=== PATIENT | female | born 1985 | race Caucasian/White ===

== ENCOUNTER → 2017-06-29 | Outpatient (CLI) | payer BC ==
--- NOTE | 2017-06-30 16:57 | ECHOF ---
Referral Reason:Cardiomyopathy I42.2 MEASUREMENTS -------- HEIGHT: 170.2 cm WEIGHT: 104.3 kg BP: IVSd: 1.0 cm (0.6 - 1.1) LVIDd: 4.3 cm (3.9 - 5.3) LVPWd: 1.0 cm (0.6 - 1.1) IVSs: 1.7 cm LVIDs: 1.9 cm LVPWs: 1.9 cm Ao Diam: 2.7 cm (2.0 - 3.7) AV Cusp: 1.9 cm (1.5 - 2.6) LA Diam: 3.0 cm (2.7 - 3.8) MV EXCURSION: 13.341 mm (> 18.000) MV EF SLOPE: 95 mm/s (70 - 150) EPSS: 0.9 cm MV E Luis: 0.74 m/s MV DecT: 214 ms MV A Luis: 0.73 m/s MV E/A Ratio: 1.02 RAP: 5.00 mmHg RVSP: 19.91 mmHg FINDINGS -------- Sinus rhythm. This was a technically good study. Left ventricular wall thickness is normal. Overall left ventricular systolic function is normal with, an EF between 55 - 60 %. The right ventricle is normal in size and function. The left atrium is normal in size. The right atrium is normal in size. The aortic valve is trileaflet, and appears structurally normal. No aortic stenosis or regurgitation. There is trace mitral regurgitation. Trace tricuspid regurgitation present. The right ventricular systolic pressure, as measured by Doppler, is 19.91mmHg. Pulmonic valve appears structurally normal. The aortic root size is normal. The pericardium is normal. CONCLUSIONS -------- 1. Sinus rhythm. 2. Trace tricuspid regurgitation present. 3. The right ventricular systolic pressure, as measured by Doppler, is 19.91mmHg. 4. Pulmonic valve appears structurally normal. 5. The aortic root size is normal. 6. The pericardium is normal. 7. This was a technically good study. 8. Left ventricular wall thickness is normal. 9. Overall left ventricular systolic function is normal with, an EF between 55 - 60 %. 10. The right ventricle is normal in size and function. 11. The left atrium is normal in size. 12. The right atrium is normal in size. 13. The aortic valve is trileaflet, and appears structurally normal. No aortic stenosis or regurgitation. 14. There is trace mitral regurgitation. SPOT WELDER LINE: Jie Yadav RDCS
== END | disposition home or self-care (01) ==
LOC: RADECHMAIN 08:21
PROVIDERS: ATTEND Family Medicine
DX: I42.2 Other hypertrophic cardiomyopathy (principal)
CPT/HCPCS: 93306

== ENCOUNTER → 2018-11-03 | Outpatient (CLI) | payer BC ==
--- NOTE | 2018-11-03 20:30 | CONS ---
CONSULTATION DATE OF SERVICE: 11/03/2018 32-year-old lady has been evaluated in Sleep Center for snoring, awakenings from sleep apnea and headaches and excessive daytime sleepiness. HISTORY OF PRESENT ILLNESS/SLEEP-WAKE EVALUATION: SLEEP SCHEDULE: Patient usual sleep schedule from 10 p.m. to 6 a.m. on working days and from 11:30 p.m. to 7 a.m. on weekends. FALLING ASLEEP: No problem with falling asleep, although she has TV set in bedroom. DURING SLEEP: She usually sleeps on the back and side position with her and snoring and multiple awakenings from sleep 5 times with up to 3 episodes of nocturia. DURING THE DAY/SLEEP WAKE EVALUATION: Sometimes she has episodes of starting to see dreams after closing your eyes. No history of sleep paralysis. No history of cataplexy. [place] Sleepiness Scale is 10. PAST MEDICAL HISTORY: Positive for migraine. PAST SURGICAL HISTORY: Cholecystectomy and bilateral arthroscopic knee surgery. MEDICATIONS: Amitriptyline for headaches, Loratadine, Ermhe-Juw-Nylktu. FAMILY HISTORY: Hypertension, heart problems, hyperlipidemia, epilepsy, fibromyalgia, sinus problems, sleep apnea, snoring, headaches, cancer, insomnia, acid reflux, diabetes, thyroid problems. REVIEW OF SYSTEMS: Multiple awakenings from sleep with headaches, sleepiness during the day. PHYSICAL EXAM: A 32-year-old lady without distress. BP 132/90, HR 94, RR 15, height 5 feet 6- 1/2 inches, weight 242.6 pounds, body mass index 38.4, temperature 98.2, oxygen saturation at room air 98%. Oropharynx: Extremely low position of soft palate. Neck 15-1/2 inches in circumference. Abdomen slightly obese. Neck Supple, no JVD. Thyroid is not palpable. LUNGS Clear to percussion and to auscultation. Good air exchange. No wheezing or rhonchi. HEART S1, S2 regular. No murmurs, gallops, or rubs. ABDOMEN: Slightly obese. Soft and nontender. Bowel sounds are present. No organomegaly appreciated. EXTREMITIES No clubbing or cyanosis. COLLATERAL CLERK Awake, alert, and oriented X3. Cranial nerves 2 to 7 intact. There is no fasciculation or atrophy. noted. No focal deficits observed. IMPRESSION: 1. Snoring, multiple awakenings from sleep, excessive daytime sleepiness, low position of soft palate, possible obstructive sleep apnea-hypopnea syndrome. 2. Migraines. Some of episodes started in sleep. 3. Status post cholecystectomy. 4. Status post bilateral arthroscopic knee surgery. PLAN: 1. Polysomnography for evaluation of patient's breathing during sleep. 2. CPAP/BiPAP titration if sleep study confirms obstructive sleep apnea-hypopnea syndrome. 3. Preferable position during sleep on the side. 4. No driving if patient feels any sleepiness. 5. I will see patient for follow up visit to explain results of testing and following plan. Thank you very much for referring this patient for consultation. Sincerely, Deven Landers MD, PhD, FAASM Diplomat of [place] [employer] [place] [employer] Gas Well Pumper of [facility] [place] MMODL / KIMBERLYN: [id number] /
== END | disposition home or self-care (01) ==
LOC: SLEEP 15:10
PROVIDERS: ATTEND Internal Medicine
DX: G47.10 Hypersomnia, unspecified (principal); G43.909 Migraine, unspecified, not intractable, without status migrainosus; Z90.49 Acquired absence of other specified parts of digestive tract; Z79.899 Other long term (current) drug therapy; Z98.890 Other specified postprocedural states
CPT/HCPCS: 99211

== ENCOUNTER → 2019-03-23 | Outpatient (CLI) | payer BC ==
--- NOTE | 2019-03-23 14:19 | SFUN ---
SLEEP CENTER FOLLOW UP NOTE DATE OF SERVICE: 03/23/2019 A 33-year-old lady who has been followed in the Sleep Center for treatment of obstructive sleep apnea-hypopnea syndrome. Recently, patient had home sleep study which showed the patient has mild sleep apnea and because the patient has symptoms of excessive daytime sleepiness, she was started on treatment with auto PAP. She is able to use her CPAP equipment at night, but sometimes has problem with the mask. Feels that day air is a little bit too hot, so she takes her humidity heater off. [place] Sleepiness Scale today is 5 which is significantly better than during the previous visit. Patient does not snore with the machine, feels more refreshed during the day. I checked her CPAP unit, pressure is 5-15, average pressure is 9.5 cm of water. Patient uses 25 nights out of 30 nights and /30 nights more than 4 hours with average usage is 6.1 hour, which is normal compliance. Leak is 4 L/minute, which is normal range. Apnea-hypopnea index only 0.7, which is also normal. MEDICATIONS: None. PHYSICAL EXAM: Patient in no distress. BP on the right arm 159/92, on the left 147/91, HR 78, RR 16, weight 247, temp 97.2, oxygen saturation at room air 98.3. OROPHARYNX: Extremely low position of soft palate. Mallampati IV. ABDOMEN: Slightly obese. Neck Supple, no JVD. Thyroid is not palpable. LUNGS Clear to percussion and to auscultation. Good air exchange. No wheezing or rhonchi. HEART S1, S2 regular. No murmurs, gallops, or rubs. EXTREMITIES No clubbing or cyanosis. EVENT EXECUTIVE Awake, alert, and oriented X3. Cranial nerves 2 to 7 intact. There is no fasciculation or atrophy. noted. No focal deficits observed. IMPRESSION: 1. Mild obstructive sleep apnea-hypopnea syndrome with symptoms of excessive daytime sleepiness. Patient demonstrated good compliance with treatment benefitting from treatment. 2. Hypertension in the office today. 3. History of migraine. 4. Status post cholecystectomy. 5. Status post bilateral endoscopic knee surgery. PLAN: 1. Patient will continue to use CPAP equipment every night for the whole night. 2. We will consider to change the mask for different style of nasal pillow mask. 3. Losing weight. 4. Sleep hygiene with regular time in bed for at least 8 hours. 5. No driving if feeling sleepiness. Thank you very much for allowing me to participate in the management of your patient. Sincerely, Deven Landers MD, PhD, FAASM Diplomat of [place] [employer] [place] [employer] Yard Crane Operator of [facility] [place] MMCLIFTON / GIUSEPPE: [id number] /
== END | disposition home or self-care (01) ==
LOC: SLEEP 13:04
PROVIDERS: ATTEND Internal Medicine
DX: G47.33 Obstructive sleep apnea (adult) (pediatric) (principal); I10 Essential (primary) hypertension; Z86.69 Personal history of other diseases of the nervous system and sense organs; Z90.49 Acquired absence of other specified parts of digestive tract; Z98.890 Other specified postprocedural states

== ENCOUNTER → 2020-08-01 | Outpatient (CLI) | payer BC ==
--- NOTE | 2020-08-10 14:56 | EM ---
EVENT MONITOR EVENT MONITOR: Event monitor shows sinus rhythm and sinus tachycardia. Occasional PVCs. No nonsustained ventricular tachycardia. MMODL / IJN: [id number] /
== END | disposition home or self-care (01) ==
LOC: RADECHMAIN 11:45
PROVIDERS: ATTEND Family Medicine
DX: I49.8 Other specified cardiac arrhythmias (principal); R00.0 Tachycardia, unspecified
CPT/HCPCS: 93270

== ENCOUNTER 2021-03-25 09:56 | Inpatient (IN) | payer BC ==
[2021-03-22 11:32] VITALS: BMI 40.9
[2021-03-25] MEDS ORDERED: CLINDAMYCIN 900 MG in DEXTROSE 5% IN WATER 50 ML IVPB ONE ×2 (10:00)
[2021-03-25] MEDS ORDERED: LACTATED RINGERS 1,000 ML IV ONE (10:00)
[2021-03-25] MEDS ORDERED: CITRIC ACID-SODIUM CITRATE 15 ML CUP PO ONE (10:00)
[2021-03-25] MEDS ORDERED: GENTAMICIN 400 MG in SODIUM CHLORIDE 0.9% 100 ML IVPB ONE (10:00)
[2021-03-25] MEDS: LACTATED RINGERS 1,000 ML IV SCH ×2 (11:37→15:13)
[2021-03-25 11:58] LABS: Basophils % (A) 0 %; Eosinophils # (A) 0.1 k/uL (0-0.7); Eosinophils % (A) 1 %; HCT 42.7 % (34.0-46.0); HGB 14.7 gm/dL (11.4-16.0); Lymphocytes # (A) 1.9 k/uL (1.0-4.8); Lymphocytes % (A) 18 %; MCH 31.5 pg (25.0-35.0); MCHC 34.5 g/dL (31.0-37.0); MCV 91.3 fL (80.0-100.0); Mean Platelet Volume 6.9; Monocytes # (A) 0.5 k/uL (0-1.0); Monocytes % (A) 4 %; Neutrophils # (A) 8.4 k/uL (1.3-7.7); Neutrophils % (A) 76 %; Platelet Count 323 k/uL (150-450); RBC 4.68 m/uL (3.80-5.40); RDW 14.3 % (11.5-15.5); WBC 11.1 k/uL (3.8-10.6)
[2021-03-25] MEDS ORDERED: PHENYLEPHRINE-0.9% NACL SYG 1,000 MCG/10 ML SYRINGE ONE (12:10)
[2021-03-25] MEDS ORDERED: OXYTOCIN 10 UNIT/ML 1 ML VIAL ONE (12:10)
[2021-03-25] MEDS ORDERED: KETOROLAC 15 MG/ML 1 ML VIAL ONE (12:10)
[2021-03-25] MEDS ORDERED: MORPHINE SULFATE (PF) 0.3 MG/0.3 ML SYR ONE (12:10)
[2021-03-25] MEDS ORDERED: ONDANSETRON 4 MG/2 ML VIAL ONE (12:10)
[2021-03-25] MEDS ORDERED: NALOXONE 0.4 MG/ML 1 ML VIAL IV PRN ×2 (12:35→13:07)
--- NOTE | 2021-03-25 13:04 | P.HPOB ---
History of Present Illness H&P Date: 03/25/21 Chief Complaint: Intrauterine at 38-5/7 weeks gestation, mac rosomia This is a 35-year-old 4 para 2011 woman with an estimated due date of 05/15/2020 based on first trimester ultrasound. She presents for primary low transverse section and bilateral tubal ligation secondary to findings of macrosomia by ultrasound. Estimated weight was greater than 4800 g greater than 1 week ago. Risks benefits and alternatives to attempted vaginal delivery were reviewed with the patient in detail and she preferred to proceed with primary section to prevent elevated risk of shoulder dystocia and, K did labor. She also desired permanent sterility and consents were signed for bilateral tubal ligation. Her has been complicated by maternal history of chronic hypertension. She has been maintained on Procardia XL 60 mg throughout the with no evidence of superimposed preeclampsia or blood pressure increases in the third trimester. Obstetric history: 2006 38 weeks normal spontaneous vaginal delivery 6 lbs. 12 oz., 2014 39 weeks 8 lbs. 15 oz. normal spontaneous vaginal delivery. Laboratory data: Blood type A+, antibody screen negative, rubella immune, VDRL nonreactive, hep Greta surface antigen negative, HIV negative, gonorrhea and clinic cultures negative, diabetes screening within normal limits, group B strep negative. Review of Systems All systems: negative Past Medical History Past Medical History: GERD/Reflux, Hypertension, Sleep Apnea/CPAP/BIPAP Additional Past Medical History / Comment(s): migraines, not currently using cpap, History of Any Multi-Drug Resistant Organisms: MRSA Date of last positivie culture/infection: 04/17/2015 MDRO Source:: urine Past Surgical History: Cholecystectomy Additional Past Surgical History / Comment(s): bilateral knee arthroscopy Past Anesthesia/Blood Transfusion Reactions: Previous Problems w/ Anesthesia, Motion Sickness, Postoperative Nausea & Vomiting (PONV) Additional Past Anesthesia/Blood Transfusion Reaction / Comment(s): "hard time getting numb at dentists" Past Psychological History: No Psychological Hx Reported Smoking Status: Never smoker Past Alcohol Use History: None Reported Past Drug Use History: None Reported - Past Family History Mother Family Medical History: No Reported History Father Brother(s) Family Medical History: Diabetes Mellitus Additional Family Medical History / Comment(s): mother: epilepsy Medications and Allergies Home Medications Medication Instructions Recorded Confirmed Type Ondansetron [Zofran] 4 mg PO Q8HR PRN 02/24/18 03/25/21 History Aspirin [Adult Low Dose Aspirin EC] 81 mg PO HS 03/22/21 03/25/21 History Loratadine [Claritin] 10 mg PO HS 03/22/21 03/25/21 History NIFEdipine [Procardia XL] 60 mg PO 2100 03/22/21 03/25/21 History Pnv No.95/Ferrous Fum/Folic AC 1 each PO HS 03/22/21 03/25/21 History [ Multivitamin Tablet] Allergies Allergy/AdvReac Type Severity Reaction Status Date / Time Cephalosporins Allergy Anaphylaxis Verified 03/22/21 11:20 Penicillins Allergy Anaphylaxis Verified 03/22/21 11:20 prochlorperazine Allergy Anaphylaxis Verified 03/22/21 11:20 [From Compazine] prochlorperazine edisylate Allergy Anaphylaxis Verified 03/22/21 11:20 [From Compazine] prochlorperazine maleate Allergy Anaphylaxis Verified 03/22/21 11:20 [From Compazine] promethazine HCl Allergy Anaphylaxis Verified 03/22/21 11:20 [From Phenergan] Exam Vital Signs Pulse Resp BP Pulse Ox 03/25/21 12:36 16 99 03/25/21 10:15 111 H 14 135/88 Intake and Output 03/24/21 03/25/21 03/25/21 22:59 06:59 14:59 Other: Weight 116.891 kg 's is pleasant, visibly gravid female in no obvious distress. HEENT exam is unremarkable. Her breathing is unlabored and her heart is a regular rate and rhythm. The abdomen is gravid with a fundal height of 44 cm. She has 1+ bilateral lower extremity edema. heart tones are reassuring by external monitoring and she is not in active labor. Results Result Diagrams: 03/25/21 11:37 Abnormal Lab Results - Last 24 Hours (Table) 03/25/21 Range/Units 11:37 WBC 11.1 H (3.8-10.6) k/uL Neutrophils # 8.4 H (1.3-7.7) k/uL Assessment and Plan (1) Term Current Visit: Yes Status: Acute Code(s): Z34.90 - ENCNTR FOR SUPRVSN OF NORMAL , UNSP, UNSP TRIMESTER SNOMED Code(s): 58082073 (2) Macrosomia Current Visit: Yes Status: Acute Code(s): P08.0 - EXCEPTIONALLY LARGE BABY SNOMED Code(s): 12176068 (3) Hypertension Current Visit: Yes Status: Acute Code(s): I10 - ESSENTIAL (PRIMARY) HYPERTENSION SNOMED Code(s): 89036582 (4) Family planning Current Visit: Yes Status: Acute Code(s): Z30.09 - ENCOUNTER FOR OT GENERAL CNSL AND ADVICE ON CONTRACEPTION SNOMED Code(s): 840655904 Plan: 35-year-old 4 para 2012 woman with findings of significant macrosomia estimated weight greater than 4800 g by ultrasound to is admitted for primary low transverse section and bilateral tubal ligation. Alternatives to contraception reviewed in detail and consent is signed for bilateral tubal ligation. She's history of chronic hypertension, well-controlled. Risks of the procedure have been reviewed with the patient in detail in the office setting include bleeding, transfusion, infection, damage to bowel, bladder, ureters and/or other pelvic structures, anesthesia complications, DVT, PE. Risks of tubal ligation including failure and ectopic .
[2021-03-25] MEDS ORDERED: ZOLPIDEM 5 MG TAB PO PRN (13:07)
[2021-03-25] MEDS ORDERED: SIMETHICONE 80 MG CHEWABLE PO PRN (13:07)
[2021-03-25] MEDS ORDERED: diphenhydrAMINE 50 MG/ML 1 ML VIAL IVP PRN ×2 (13:07)
[2021-03-25] MEDS ORDERED: ONDANSETRON 4 MG/2 ML VIAL IVP PRN (13:07)
[2021-03-25] MEDS ORDERED: HYDROmorphone 2 MG TAB PO PRN (13:07)
[2021-03-25] MEDS ORDERED: diphenhydrAMINE 25 MG CAP PO PRN (13:07)
[2021-03-25] MEDS ORDERED: diphenhydrAMINE 50 MG CAP PO PRN (13:07)
--- NOTE | 2021-03-25 13:07 | P.OP ---
Date of Procedure: 03/25/21 Preoperative Diagnosis: intrauterine at 38-5/7 Suspected macrosomia Chronic hypertension Desires permanent sterility Postoperative Diagnosis: same Procedure(s) Performed: primary low transverse section with bilateral tubal ligation Anesthesia: spinal Surgeon: Crystal Hurley Systems Architecture Analyst #1: Ryland Rojas Estimated Blood Loss (ml): 500 IV fluids (ml): 1,000 Urine output (ml): 200 Pathology: none sent Condition: stable Disposition: floor Indications for Procedure: macrosomia estimated weight greater than 4800 g by ultrasound. Operative Findings: Male in the vertex presentation with Apgars of 9 at 1 minute and 9 at 5 minutes weighing 4470 g, 9 lbs. 14 oz. Normal-appearing bilateral fallopian tubes uterus and ovaries. Intact, three-vessel cord placenta. Nuchal cord 1. Description of Procedure: After the patient was met preoperatively and all questions were answered, she was taken to the operating room where spinal anesthetic was administered without incident. She was then positioned, prepped and draped in the dorsal supine position with a leftward tilt. Melgar catheter was placed. After anesthetic was confirmed adequate, a low transverse skin incision was made following the pre- existing scar. This was carried down to the underlying fascia both sharply and with the electrocautery. The fascia was then incised in the midline and extended bilaterally with the Torres scissors. The superior aspect of the fascial incision was elevated and the underlying rectus muscles dissected off sharply and with the electrocautery. The inferior aspect of the fascial incision was also elevated and the underlying rectus muscles dissected off sharply. These were bluntly and the peritoneum was tented up with hemostats. The peritoneum was entered sharply with the Metzenbaum scissors. The peritoneal incision was extended inferiorly and superiorly with good visualization of the bladder. The bladder blade was placed. The vesicouterine peritoneum was identified, tented up and entered sharply, the bladder flap was created both sharply and digitally. A low transverse uterine incision was then made sharply and carried down to the underlying amniotic membranes. Membranes were ruptured and clear fluid was noted. The uterine incision was extended bilaterally bluntly. The infant's head was delivered from the incision without difficulty. Nuchal cord 1 reduced. The nose and mouth were bulb suctioned. The rest of the was delivered onto the field without difficulty. And cut and the was taken to the warmer. An intact, three-vessel cord placenta was then manually removed and the uterus was exteriorized. The uterus was cleared of all clot and debris. The uterine incision was delineated with Young clamps. The uterine incision was then closed in a running locked fashion with 0 Vicryl suture. Additional [id number] sutures were placed where necessary along the incision for hemostasis. The right and left fallopian tubes were positively identified and carried out to the fimbriated ends. Filshie clip clips were then applied in the mid ampullary portion of the tubes completely transecting each tube. The uterus was then returned to the abdomen and the gutters were cleared of all clot and debris. The uterine incision was reinspected and Bovie electrocautery was utilized were necessary for hemostasis. The fascial edges, peritoneal edges and rectus muscles were inspected and Bovie electrocautery utilized were necessary for hemostasis. The fascia was then closed in a running fashion with 0 Vicryl suture. The subcuticular tissue was copiously suction irrigated and Bovie electrocautery utilized were necessary for hemostasis. 3-0 Vicryl suture was utilized to reapproximate the subcuticular tissue. The skin was then closed in a subcutaneous fashion with 4-0 Vicryl suture. All counts reported to me as correct by the operating room staff at the end of the procedure. The patient received antibiotics preoperatively and Pitocin following cord clamp. Mother and were both transported from the room in stable condition.
[2021-03-25] MEDS ORDERED: OXYTOCIN 30 UNITS/500 ML NS 30 UNIT in SALINE 1 500ML.BAG IV SCH (13:15)
[2021-03-25] MEDS ORDERED: LACTATED RINGERS 1,000 ML IV SCH (13:15)
[2021-03-25] MEDS: METOCLOPRAMIDE 5 MG/ML 2 ML VIAL IVP PRN ×2 (17:49→23:27)
[2021-03-25] MEDS: ACETAMINOPHEN TAB 500 MG TAB PO SCH (18:14)
[2021-03-25] MEDS: IBUPROFEN 600 MG TAB PO SCH (18:15)
[2021-03-25] MEDS: KETOROLAC 15 MG/ML 1 ML VIAL IVP SCH (21:52)
[2021-03-25] MEDS: SENNOSIDES-DOCUSATE SODIUM 1 EACH TAB PO SCH (21:53)
[2021-03-26 03:17] VITALS: RESP 16
[2021-03-26] MEDS: LACTATED RINGERS 1,000 ML IV SCH (04:51)
[2021-03-26] MEDS: KETOROLAC 15 MG/ML 1 ML VIAL IVP SCH ×2 (04:51→13:02)
[2021-03-26 06:29] LABS: Basophils % (A) 0 %; Eosinophils # (A) 0.1 k/uL (0-0.7); Eosinophils % (A) 1 %; HCT 36.9 % (34.0-46.0); HGB 12.8 gm/dL (11.4-16.0); Lymphocytes # (A) 1.7 k/uL (1.0-4.8); Lymphocytes % (A) 17 %; MCH 31.7 pg (25.0-35.0); MCHC 34.6 g/dL (31.0-37.0); MCV 91.8 fL (80.0-100.0); Mean Platelet Volume 6.8; Monocytes # (A) 0.6 k/uL (0-1.0); Monocytes % (A) 5 %; Neutrophils # (A) 7.7 k/uL (1.3-7.7); Neutrophils % (A) 75 %; Platelet Count 268 k/uL (150-450); RBC 4.03 m/uL (3.80-5.40); RDW 14.2 % (11.5-15.5); WBC 10.3 k/uL (3.8-10.6)
[2021-03-26] MEDS: SENNOSIDES-DOCUSATE SODIUM 1 EACH TAB PO SCH ×2 (07:44→20:47)
--- NOTE | 2021-03-26 09:22 | P.PN ---
Progress Note - Text Date:03/26/21 Time:659am Patient is status post . Patient seen this morning with VAS score of 3.no c/o of pruritus, no c/o nausea/vomiting, comfortable and doing well.
--- NOTE | 2021-03-26 09:49 | P.PNOBGPC ---
Subjective - Subjective Principal diagnosis: Postop day 1 Interval history: Catheter removed at approximately 2 AM. She's been unable to void spontaneously since that time. Had nausea on postop day 0 that has now resolved. Pain is well-controlled Patient reports: Reports appetite normal, Reports pain well controlled, Reports ambulating normally, Denies voiding normally, Denies dizzy ambulation : doing well Objective - Vital Signs Latest vital signs: Vital Signs Temp Pulse Resp BP Pulse Ox 03/26/21 08:00 98.4 F 77 16 109/66 98 03/26/21 07:00 16 03/26/21 05:00 16 100 03/26/21 04:00 98.3 F 77 16 136/82 03/26/21 03:00 16 03/26/21 01:00 16 98 03/25/21 23:52 98.2 F 80 14 142/76 03/25/21 23:00 16 03/25/21 21:00 16 100 03/25/21 20:00 98.3 F 80 16 163/84 03/25/21 19:00 20 96 03/25/21 17:36 96 03/25/21 17:00 68 18 96 03/25/21 15:37 81 16 142/84 99 03/25/21 15:36 16 03/25/21 15:00 66 16 135/75 98 03/25/21 14:30 69 16 131/81 96 03/25/21 14:00 88 16 132/79 96 03/25/21 13:45 75 16 125/67 99 03/25/21 13:36 16 99 03/25/21 13:30 72 16 127/71 03/25/21 13:15 75 16 122/58 99 03/25/21 13:00 95.7 F L 71 16 118/59 97 03/25/21 12:36 16 99 03/25/21 10:15 111 H 14 135/88 Intake and Output 03/25/21 03/26/21 03/26/21 22:59 06:59 14:59 Output Total 800 300 Balance -800 -300 Output: Urine 700 300 Uretheral (Melgar) 200 Emesis 100 Other: Voiding Method Indwelling Catheter Indwelling Catheter - Exam Abdomen: Present: normal appearance, soft Incision: Present: normal, dry, dressed - Labs Labs: Abnormal Lab Results - Last 24 Hours (Table) 03/25/21 Range/Units 11:37 WBC 11.1 H (3.8-10.6) k/uL Neutrophils # 8.4 H (1.3-7.7) k/uL Assessment and Plan (1) Term Current Visit: Yes Status: Acute Code(s): Z34.90 - ENCNTR FOR SUPRVSN OF NORMAL , UNSP, UNSP TRIMESTER SNOMED Code(s): 41961716 (2) Macrosomia Current Visit: Yes Status: Acute Code(s): P08.0 - EXCEPTIONALLY LARGE BABY SNOMED Code(s): 36293887 (3) Hypertension Current Visit: Yes Status: Acute Code(s): I10 - ESSENTIAL (PRIMARY) HYPERTENSION SNOMED Code(s): 30342797 (4) Family planning Current Visit: Yes Status: Acute Code(s): Z30.09 - ENCOUNTER FOR OTH GENERAL CNSL AND ADVICE ON CONTRACEPTION SNOMED Code(s): 452767101 (5) S/P section Current Visit: Yes Status: Acute Code(s): Z98.891 - HISTORY OF UTERINE SCAR FROM PREVIOUS SURGERY SNOMED Code(s): 224597428 Plan: Postop day 1 status post primary low transverse section and bilateral tubal ligation for macrosomia. She is on not yet able to void spontaneously with a Melgar catheter out. Straight cath will be performed and patient is reassured that this is not uncommon after spinal anesthetic. She is otherwise recovering well. Her blood pressures have been on normal for her and her Procardia was resumed last night. Routine care. Probable discharge home tomorrow.
[2021-03-26] MEDS: ACETAMINOPHEN TAB 500 MG TAB PO SCH ×4 (10:04→22:44)
[2021-03-26] MEDS: IBUPROFEN 600 MG TAB PO SCH (20:47)
[2021-03-27] MEDS: IBUPROFEN 600 MG TAB PO SCH ×2 (07:31→12:11)
--- NOTE | 2021-03-27 08:31 | P.DS ---
Providers Date of admission: 03/25/21 09:56 Expected date of discharge: 03/27/21 Attending physician: Crystal Hurley Primary care physician: Stated None - Discharge Diagnosis(es) (1) Term Current Visit: Yes Status: Acute (2) Macrosomia Current Visit: Yes Status: Acute (3) Hypertension Current Visit: Yes Status: Acute (4) Family planning Current Visit: Yes Status: Acute (5) S/P section Current Visit: Yes Status: Acute Hospital Course: This is a 35-year-old 4 now para 3 woman who is admitted at 38-5/7 weeks gestation for primary low transverse section and bilateral tubal ligation secondary to macrosomia and desire for permanent sterility. Ultrasound indicated greater than 4800 g and patient elected for primary for risk reduction of shoulder dystocia. Following admission the patient went to the operating room where she underwent an uncomplicated primary low transverse section with bilateral tubal ligation. Findings at the time of surgery were significant for a male infant weighing 4400 g, 9 lbs. 14 oz. The patient's postoperative course was unremarkable. She did have some initial postoperative nausea and inability to void when the Melgar catheter was removed. This did resolve by postoperative day #1. She was restarted on her Procardia for history of chronic hypertension and had normal blood pressures throughout her stay. By postoperative day #2 she continued to do very well. She was ambulating and voiding without difficulty and tolerating a general diet. Her pain was well-controlled. Her incision appeared well healing. Her blood pressures were normal. Her postoperative labs were normal. She was therefore discharged home with routine instructions for postoperative care and follow-up. Plan - Discharge Summary Discharge Rx Participant: Yes New Discharge Prescriptions: New HYDROcodone/APAP 5-325MG [[place] 5-325] 1 tab PO Q6HR PRN 3 Days #12 tab PRN Reason: Pain NIFEdipine XL [Procardia XL] 60 mg PO 2100 tab.er.24 Ibuprofen [Motrin] 600 mg PO Q6H tab Discontinued Aspirin [Adult Low Dose Aspirin EC] 81 mg PO HS NIFEdipine [Procardia XL] 60 mg PO 2100 No Action Ondansetron [Zofran] 4 mg PO Q8HR PRN PRN Reason: migraines Loratadine [Claritin] 10 mg PO HS Pnv No.95/Ferrous Fum/Folic AC [ Multivitamin Tablet] 1 each PO HS Discharge Medication List Ondansetron [Zofran] 4 mg PO Q8HR PRN 02/24/18 [History] Loratadine [Claritin] 10 mg PO HS 03/22/21 [History] Pnv No.95/Ferrous Fum/Folic AC [ Multivitamin Tablet] 1 each PO HS 03/22/21 [History] HYDROcodone/APAP 5-325MG [[place] 5-325] 1 tab PO Q6HR PRN 3 Days #12 tab 03/27/21 [Rx] Ibuprofen [Motrin] 600 mg PO Q6H tab 03/27/21 [Rx] NIFEdipine XL [Procardia XL] 60 mg PO 2100 tab.er.24 03/27/21 [Rx] Follow up Appointment(s)/Referral(s): Crystal Hurley MD [STAFF PHYSICIAN] - 2 Weeks Activity/Diet/Wound Care/Special Instructions: Follow-up in 2 weeks after surgery in the office. Call the office with any concerning signs or symptoms including fever greater than 101, severe abdominal pain, heavy vaginal bleeding, signs of wound infection, increased swelling or redness of the lower extremities, signs of depression. No driving for 2 weeks after surgery. No heavy lifting or vigorous activity until reevaluated in the office. No intercourse for 6 weeks after delivery. Discharge Disposition: HOME SELF-CARE
[2021-03-27 11:56] VITALS: BP 133/89; PULSE 79; TEMP 98.2
== END 2021-03-27 11:30 | disposition home or self-care (01) | DRG 785 ==
LOC: 4FBP 09:56
PROVIDERS: ADMIT Obstetrics & Gynecology; ATTEND Obstetrics & Gynecology
PROC: 0UB70ZZ Excision of Bilateral Fallopian Tubes, Open Approach (ICD-10-PCS; 2021-03-25)
PROC: 10D00Z1 Extraction of Products of Conception, Low, Open Approach (ICD-10-PCS; principal; 2021-03-25 12:00)
DX: O36.63X0 Maternal care for excessive fetal growth, third trimester, not applicable or unspecified (principal); I10 Essential (primary) hypertension; O16.4 Unspecified maternal hypertension, complicating childbirth; O66.0 Obstructed labor due to shoulder dystocia; O69.81X0 Labor and delivery complicated by cord around neck, without compression, not applicable or unspecified; Z30.2 Encounter for sterilization; Z37.0 Single live birth; Z3A.38 38 weeks gestation of pregnancy; Z79.82 Long term (current) use of aspirin; Z82.0 Family history of epilepsy and other diseases of the nervous system; Z83.3 Family history of diabetes mellitus
CPT/HCPCS: 85025; 86850; 86900; 86901

== ENCOUNTER → 2022-05-16 | Outpatient (CLI) | payer OTHER ==
--- NOTE | 2022-05-16 08:09 | CT ---
EXAMINATION TYPE: CT chest w con DATE OF EXAM: 05/16/2022 COMPARISON: None HISTORY: 36-year-old female R05.3, cough Chronic cough TECHNIQUE: Contiguous axial scanning of the chest after the administration of 70 mL of Isovue 300. C oronal/sagittal reconstructions performed. CT DLP: 652.7mGycm. Automatic exposure control utilized for a dose reduction. FINDINGS: Heart normal size without pericardial effusion. Aorta normal caliber with variant directly off of the left vertebral artery directly from the aortic arch. No thoracic lymphadenopathy by CT size criteria. Mild dependent atelectasis posteriorly along the lungs. No consolidation or pleural effusion. There is a small hiatal hernia noted. Otherwise, visualized upper abdomen shows small anterior splenu le and cholecystectomy clips. Bones: No osseous destructive process. IMPRESSION: No acute pulmonary process. Minimal dependent atelectasis posteriorly along the lungs. Small hiatal h ernia.
== END | disposition home or self-care (01) ==
LOC: RADCTMAIN 07:29
PROVIDERS: ATTEND Family Medicine
DX: J98.11 Atelectasis (principal); K44.9 Diaphragmatic hernia without obstruction or gangrene
CPT/HCPCS: 71260; Q9967